=== PATIENT | female | born 1945 | race Caucasian/White ===

== ENCOUNTER 2018-04-07 23:45 | Inpatient (IN) | payer OTHER, MEDICARE ==
[~2018-04-07] VITALS: Ht 167.6 cm; Wt 100.5 kg
[~2018-04-07 23:45] MED LIST: ASPIR-LOW81 MG PO; ATENOLOL25 M1 PO; CELEXA40 MG PO; CITALOPRAM HBR40 M1 PO; CITALOPRAM HBR40 MG PO; CLONAZEPAM0.5 M1 PO; CLONAZEPAM0.5 MG PO; DILAUDID2 MG PO; GLUCOPHAGE500 MG PO; KLONOPIN0.5 M1 PO; LEVOTHYROXINE137 MCG PO; LEVOTHYROXINE150 MCG PO; LIDODERM 5% P1 PATCH PO; LIDODERM 5% P1 PATCH TD; LISINOPRIL5 MG PO; LYRICA75 MG PO; MECLIZINE HCL25 M3 PO; MECLIZINE HCL25 MG PO; MELOXICAM15 MG PO; METFORMIN HCL500 MG PO; METOPROLOL SUCC50 MG PO; MORPHINE; MORPHINE SULFA100 M2 PO; MORPHINE SULFA100 MG PO; MS CONTIN100 MG PO; OXYCODONE HCL10 MG PO; OXYCODONE10 MG PO; PERCOCET 10/1 TABLET PO; PROVENTIL,2.5 MG/3 M IH; RANITIDINE HCL150 M1 PO; RANITIDINE HCL300 M1 PO; RANITIDINE HCL300 MG PO; SUCRALFATE1 GM PO; SYNTHROID125 MCG PO; TENORMIN25 MG PO; TOPROL XL50 MG PO; VENTOLIN HFA18 GM IH; ZESTRIL,PRINIVIL5 MG PO
[2018-04-08 00:38] LABS: BASOPHIL (%) 0.4 % (0-1); EOSINOPHIL COUNT 0.1 K/uL (0-0.3); HEMATOCRIT 41.2 % (36.0-46.0); HEMOGLOBIN 14.1 G/DL (11.9-15.5); IMMATURE GRANULOCYTE (%) 0.5 % (0.0-0.7); LYMPHOCYTE (%) 28.4 % (15-42); LYMPHOCYTE COUNT 2.2 K/uL (1.0-2.8); MCH 29.9 PG (29.0-34.0); MCHC 34.2 G/DL (30.0-36.0); MCV 87.3 FL (83-99); MONOCYTE (%) 6.2 % (3-12); MONOCYTE COUNT 0.5 K/uL (0-0.8); NEUTROPHIL (%) 63.5 % (45-76); RBC DIS.WIDTH-CV 12.4 % (11.8-14.6); RBC DIS.WIDTH-SD 39.5 % (39-53); RED BLOOD COUNT 4.72 M/uL (3.80-5.20); WHITE BLOOD COUNT 7.9 K/uL (4.1-10.2)
[2018-04-08 00:43] LABS: INTER. NORMALIZED RATIO 1.1
[2018-04-08 00:45] LABS: PTT 22.6 SEC (25-37)
[2018-04-08 00:48] LABS: AMYLASE 16 IU/L (1-118); CHLORIDE 101 mEq/L (99-109); POTASSIUM 3.6 mEq/L (3.7-5.4); SODIUM 143 mEq/L (136-147)
[2018-04-08 00:53] LABS: CREATININE 0.8 mg/dL (0.6-1.3); GFR ESTIMATE (CALCULATED) > 59 mL/min/; SERUM ETHYL ALCOHOL < 10 mg/dL
[2018-04-08 00:54] LABS: UREA NITROGEN (BUN) 14 mg/dL (9-23)
[2018-04-08 00:56] LABS: LIPASE 21 U/L (1.0-51.0)
[2018-04-08 01:07] LABS: GLUCOSE 275 mg/dL (70-99)
[2018-04-08 01:08] LABS: TROP-I INTERPRETATION NEGATIVE; TROPONIN-I 0.01 ng/mL (0.0-0.30)
[2018-04-08 01:09] LABS: AMPHETAMINE NEGATIVE (500 ng/mL); BARBITURATES NEGATIVE (200 ng/mL); BENZODIAZEPINES NEGATIVE (150 ng/mL); BUPRENORPHINE NEGATIVE (10 ng/mL); COCAINE NEGATIVE (150 ng/mL); METHADONE NEGATIVE (200 ng/mL); METHAMPHETAMINE NEGATIVE (500 ng/mL); OPIATES (MORPHINE) PRESUMPTIVE POSITIVE (100 ng/mL); OXYCODONE NEGATIVE (100 ng/mL); PHENCYCLIDINE NEGATIVE (25 ng/mL); PROPOXYPHENE NEGATIVE (300 ng/mL); THC CANNABINOIDS NEGATIVE (50 ng/mL); TRICYCLIC ANTIDEPRESSANTS NEGATIVE (300 ng/mL)
[2018-04-08 01:27] LABS: APPEARANCE SL.HAZY ((CLEAR)); BILIRUBIN NEGATIVE; BLOOD NEGATIVE; COLOR YELLOW ((YELLOW)); GLUCOSE (STRIP) >=500; KETONES NEGATIVE; LEUKOCYTES SMALL; NITRITE POSITIVE; PROTEIN (STRIP) NEGATIVE; SPECIFIC GRAVITY 1.015 (1.000-1.030); UROBILINOGEN 0.2 MG/DL (0.2-1.0)
[2018-04-08 01:40] LABS: BACTERIA RARE /HPF; EPITHELIAL CELLS RARE /HPF; MUCUS TRACE /LPF; RED BLOOD CELLS 0-5 /HPF (0-5); UCUL ADDED? YES; WHITE BLOOD CELLS 15-20 /HPF (0-5)
[2018-04-08 01:54] LABS: PLAT.SUFFICIENCY ADEQUATE; PLATELET COUNT 156 K/uL (156-360)
[2018-04-08 02:19] LABS: HEMATOCRIT 40.5 % (36.0-46.0); HEMOGLOBIN 14.1 G/DL (11.9-15.5); MCH 30.2 PG (29.0-34.0); MCHC 34.8 G/DL (30.0-36.0); MCV 86.7 FL (83-99); PLATELET COUNT 156 K/uL (156-360); RBC DIS.WIDTH-CV 12.4 % (11.8-14.6); RBC DIS.WIDTH-SD 39.2 % (39-53); RED BLOOD COUNT 4.67 M/uL (3.80-5.20)
[2018-04-08 02:45] LABS: TROP-I INTERPRETATION NEGATIVE; TROPONIN-I 0.02 ng/mL (0.0-0.30)
[2018-04-08 06:42] LABS: HEMOGLOBIN 13.3 G/DL (11.9-15.5); MCH 30.5 PG (29.0-34.0); MCV 87.2 FL (83-99); PLATELET COUNT 170 K/uL (156-360); RBC DIS.WIDTH-CV 12.3 % (11.8-14.6); RBC DIS.WIDTH-SD 39.3 % (39-53); RED BLOOD COUNT 4.36 M/uL (3.80-5.20); WHITE BLOOD COUNT 12.9 K/uL (4.1-10.2)
[2018-04-08 07:11] LABS: HDL CHOLESTEROL 44 MG/DL (Desirable>=50); LDL CHOLESTEROL 112 mg/dL (Desirable<100); NON-HDL CHOLESTEROL 144 mg/dL (Desirable<160); TOTAL CHOLESTEROL 188 mg/dL (Desirable<200); TRIGLYCERIDES 158 MG/DL (Normal: <150)
[2018-04-08 09:31] VITALS: BP 197/108
[2018-04-08 11:14] LABS: HEMOGLOBIN A1c (GLYCOHEMOGLOB) 6.8 % (Below 5.7)
[2018-04-08 11:54] VITALS: BP 122/68
[2018-04-08 12:13] LABS: TROP-I INTERPRETATION NEGATIVE; TROPONIN-I < 0.01 ng/mL (0.0-0.30)
[2018-04-08 15:55] VITALS: BP 120/66
[2018-04-08] MEDS ORDERED: ANTIVERT12.5 MG PO (16:16)
[2018-04-08] MEDS ORDERED: ZANTAC150 MG PO (16:17)
[2018-04-08] MEDS ORDERED: METFORMIN HCL1000 MG PO (16:19)
[2018-04-08] MEDS ORDERED: AVENTYL,PAMELOR25 MG PO (16:21)
[2018-04-08] MEDS ORDERED: COLACE100 MG PO (16:21)
[2018-04-08] MEDS ORDERED: LISINOPRIL40 MG PO (16:30)
[2018-04-08] MEDS ORDERED: MORPHINE IV (16:30)
[2018-04-08] MEDS ORDERED: GLUCOTROL5 MG PO (16:31)
[2018-04-08] MEDS ORDERED: SERTRALINE HCL50 MG PO (16:31)
[2018-04-08] MEDS ORDERED: AMLODIPINE BESYL5 MG PO (16:32)
[2018-04-08] MEDS ORDERED: SYNTHROID137 MCG PO (16:32)
[2018-04-08] MEDS ORDERED: DITROPAN5 MG PO (16:33)
[2018-04-08] MEDS ORDERED: LOPRESSOR50 MG PO ×2 (16:34)
[2018-04-08] MEDS ORDERED: XALATAN2.5 ML RIGHT EYE (16:35)
[2018-04-08] MEDS ORDERED: MELATONIN5 M3 PO (16:36)
[2018-04-08] MEDS ORDERED: MULTIPLE VITAM1 EAC1 PO (16:37)
[2018-04-08 18:27] LABS: TROP-I INTERPRETATION NEGATIVE; TROPONIN-I 0.01 ng/mL (0.0-0.30)
[2018-04-08 20:00] VITALS: BP 115/57
[2018-04-09] VITALS (7 sets, daily range): BP systolic 107–167; BP diastolic 51–79
[2018-04-09 05:42] LABS: BASOPHIL (%) 0.2 % (0-1); EOSINOPHIL (%) 1.9 % (0-5); EOSINOPHIL COUNT 0.2 K/uL (0-0.3); HEMATOCRIT 37.2 % (36.0-46.0); HEMOGLOBIN 12.3 G/DL (11.9-15.5); IMMATURE GRANULOCYTE (%) 0.4 % (0.0-0.7); LYMPHOCYTE (%) 32.4 % (15-42); LYMPHOCYTE COUNT 2.7 K/uL (1.0-2.8); MCH 29.5 PG (29.0-34.0); MCHC 33.1 G/DL (30.0-36.0); MCV 89.2 FL (83-99); MONOCYTE (%) 6.9 % (3-12); MONOCYTE COUNT 0.6 K/uL (0-0.8); NEUTROPHIL (%) 58.2 % (45-76); NEUTROPHIL COUNT 4.9 K/uL (1.8-6.4); PLATELET COUNT 152 K/uL (156-360); RBC DIS.WIDTH-CV 12.6 % (11.8-14.6); RBC DIS.WIDTH-SD 41.1 % (39-53); RED BLOOD COUNT 4.17 M/uL (3.80-5.20); WHITE BLOOD COUNT 8.4 K/uL (4.1-10.2)
[2018-04-09 06:15] LABS: ALBUMIN 3.8 G/DL (3.2-4.8); ALKALINE PHOSPHATASE 58 IU/L (3-129); ALT (GPT) 23 IU/L (3-49); AST (GOT) 28 IU/L (2-34); CHLORIDE 104 MEQ/L (99-109); CREATININE 0.6 MG/DL (0.6-1.3); GFR ESTIMATE (CALCULATED) > 59 mL/min/; GLUCOSE 163 mg/dL (70-99); POTASSIUM 4.2 MEQ/L (3.7-5.4); SODIUM 140 MEQ/L (136-147); TOTAL BILIRUBIN 0.4 MG/DL (0.0-1.0); TOTAL PROTEIN 6.3 G/DL (6.4-8.3); UREA NITROGEN (BUN) 16 mg/dL (9-23)
[2018-04-10 03:55] VITALS: BP 141/80
[2018-04-10 05:48] LABS: BASOPHIL (%) 0.3 % (0-1); EOSINOPHIL (%) 0.1 % (0-5); HEMATOCRIT 38.3 % (36.0-46.0); HEMOGLOBIN 12.6 G/DL (11.9-15.5); IMMATURE GRANULOCYTE (%) 1.3 % (0.0-0.7); LYMPHOCYTE (%) 15.7 % (15-42); LYMPHOCYTE COUNT 1.1 K/uL (1.0-2.8); MCH 28.8 PG (29.0-34.0); MCHC 32.9 G/DL (30.0-36.0); MCV 87.6 FL (83-99); MONOCYTE (%) 1.6 % (3-12); MONOCYTE COUNT 0.1 K/uL (0-0.8); NEUTROPHIL COUNT 5.6 K/uL (1.8-6.4); PLATELET COUNT 165 K/uL (156-360); RBC DIS.WIDTH-CV 12.1 % (11.8-14.6); RBC DIS.WIDTH-SD 38.9 % (39-53); RED BLOOD COUNT 4.37 M/uL (3.80-5.20); WHITE BLOOD COUNT 6.9 K/uL (4.1-10.2)
[2018-04-10 06:16] LABS: ALKALINE PHOSPHATASE 73 IU/L (3-129); ALT (GPT) 24 IU/L (3-49); AST (GOT) 35 IU/L (2-34); CHLORIDE 102 MEQ/L (99-109); CREATININE 0.5 MG/DL (0.6-1.3); GFR ESTIMATE (CALCULATED) > 59 mL/min/; GLUCOSE 218 mg/dL (70-99); POTASSIUM 4.6 MEQ/L (3.7-5.4); SODIUM 138 MEQ/L (136-147); TOTAL BILIRUBIN 0.4 MG/DL (0.0-1.0); TOTAL PROTEIN 6.2 G/DL (6.4-8.3); UREA NITROGEN (BUN) 14 mg/dL (9-23)
[2018-04-10 08:23] VITALS: BP 135/85
[2018-04-10 12:22] VITALS: BP 160/98
[2018-04-10 17:25] VITALS: BP 130/64
[2018-04-10 20:11] VITALS: BP 145/70
[2018-04-11] VITALS (7 sets, daily range): BP systolic 138–173; BP diastolic 70–86
[2018-04-11 06:15] LABS: BASOPHIL (%) 0.2 % (0-1); EOSINOPHIL (%) 0 % (0-5); HEMATOCRIT 36.6 % (36.0-46.0); HEMOGLOBIN 12.3 G/DL (11.9-15.5); LYMPHOCYTE (%) 15.8 % (15-42); LYMPHOCYTE COUNT 1.5 K/uL (1.0-2.8); MCH 29.5 PG (29.0-34.0); MCHC 33.6 G/DL (30.0-36.0); MCV 87.8 FL (83-99); MONOCYTE (%) 4.4 % (3-12); MONOCYTE COUNT 0.4 K/uL (0-0.8); NEUTROPHIL (%) 78.6 % (45-76); NEUTROPHIL COUNT 7.3 K/uL (1.8-6.4); PLATELET COUNT 164 K/uL (156-360); RBC DIS.WIDTH-CV 12.1 % (11.8-14.6); RBC DIS.WIDTH-SD 39.2 % (39-53); RED BLOOD COUNT 4.17 M/uL (3.80-5.20); WHITE BLOOD COUNT 9.3 K/uL (4.1-10.2)
[2018-04-11 06:38] LABS: CHLORIDE 101 MEQ/L (99-109); CREATININE 0.5 MG/DL (0.6-1.3); GFR ESTIMATE (CALCULATED) > 59 mL/min/; GLUCOSE 234 mg/dL (70-99); POTASSIUM 4.1 MEQ/L (3.7-5.4); SODIUM 139 MEQ/L (136-147); UREA NITROGEN (BUN) 14 mg/dL (9-23)
[2018-04-12 03:39] VITALS: BP 151/89
[2018-04-12 07:13] VITALS: BP 170/95
[2018-04-12 11:35] VITALS: BP 172/81
[2018-04-12 15:36] VITALS: BP 175/88
[2018-04-12 19:47] VITALS: BP 135/72
[2018-04-13 00:01] VITALS: BP 152/90
[2018-04-13 04:00] VITALS: BP 160/85
[2018-04-13 07:42] VITALS: BP 162/87
[2018-04-13] MEDS ORDERED: ATORVASTATIN CA40 MG PO (08:43)
[2018-04-13] MEDS ORDERED: NIFEDIPINE10 MG PO (08:43)
[2018-04-13] MEDS ORDERED: ANTIVERT25 MG PO (08:44)
[2018-04-13] MEDS ORDERED: MEDROL DOSEPAK4 MG PO (08:44)
[2018-04-13] MEDS ORDERED: FLAGYL500 MG PO (08:45)
[2018-04-13] MEDS ORDERED: BISAC-EVAC10 MG PR (08:48)
[2018-04-13] MEDS ORDERED: COLACE100 MG PO (08:48)
[2018-04-13 11:37] VITALS: BP 117/64
== END 2018-04-13 13:21 | DRG 155 ==
LOC: EME 23:45 → EDOF 04-08 05:35 → 4SOUTH 04-08 05:35 → ENRESERV 04-08 05:40 → 4SOUTH 04-08 07:43 → 5SOUTH 04-08 10:26 → CANRESERV 04-08 10:41 → ENRESERV 04-08 10:41 → 5SOUTH 04-10 17:15
PROVIDERS: Emergency Medicine; Hospitalist; Internal Medicine
DX: H93.3X9 Disorders of unspecified acoustic nerve (principal); I16.1 Hypertensive emergency; N39.0 Urinary tract infection, site not specified; B96.20 Unspecified Escherichia coli [E. coli] as the cause of diseases classified elsewhere; K59.03 Drug induced constipation; T40.2X5A Adverse effect of other opioids, initial encounter; K52.9 Noninfective gastroenteritis and colitis, unspecified; E87.6 Hypokalemia; I10 Essential (primary) hypertension; K21.9 Gastro-esophageal reflux disease without esophagitis; E78.5 Hyperlipidemia, unspecified; G43.909 Migraine, unspecified, not intractable, without status migrainosus; F32.9 Major depressive disorder, single episode, unspecified; E11.9 Type 2 diabetes mellitus without complications; H40.9 Unspecified glaucoma; G89.4 Chronic pain syndrome; Z96.89 Presence of other specified functional implants; Z96.653 Presence of artificial knee joint, bilateral; Z87.891 Personal history of nicotine dependence; Z98.1 Arthrodesis status; Z79.891 Long term (current) use of opiate analgesic
CPT/HCPCS: 36415; 70450; 70551; 71045; 71275; 74177; 80048; 80053; 80061; 81003; 82043; 82150; 82570; 82948; 83036; 83690; 84443; 84484; 84999; 85025; 85025 91; 85027; 85610; 85730; 86850; 86900; 86901; 87040; 87077; 87086 GA; 87186; 93005; 93880; 97530 GP; 99281; 99284; G0480; J0696; J1100; J1200; J1650; J1815; J1885; J2310; J2405; J2765; S0030

== ENCOUNTER 2018-04-13 09:16 | Inpatient (IN) | payer OTHER, MEDICARE ==
[~2018-04-13] VITALS: Ht 167.6 cm; Wt 100.2 kg
[~2018-04-13 09:16] MED LIST changes: +AMLODIPINE BESYL5 MG PO; +ANTIVERT12.5 MG PO; +ANTIVERT25 MG PO; +ATORVASTATIN CA40 MG PO; +AVENTYL,PAMELOR25 MG PO; +BISAC-EVAC10 MG PR; +COLACE100 MG PO; +DITROPAN5 MG PO; +FLAGYL500 MG PO; +GLUCOTROL5 MG PO; +LISINOPRIL40 MG PO; +LOPRESSOR50 MG PO; +MEDROL DOSEPAK4 MG PO; +MELATONIN5 M3 PO; +METFORMIN HCL1000 MG PO; +MORPHINE IV; +MULTIPLE VITAM1 EAC1 PO; +NIFEDIPINE10 MG PO; +SERTRALINE HCL50 MG PO; +SYNTHROID137 MCG PO; +XALATAN2.5 ML RIGHT EYE; +ZANTAC150 MG PO
[2018-04-13 21:28] VITALS: BP 174/84
[2018-04-14 00:05] VITALS: BP 158/77
[2018-04-14 06:59] VITALS: BP 166/77
[2018-04-14 15:40] VITALS: BP 177/77
[2018-04-15 06:04] LABS: BASOPHIL (%) 0.4 % (0-1); BASOPHIL COUNT 0.1 K/uL (0-0.1); EOSINOPHIL (%) 0.5 % (0-5); EOSINOPHIL COUNT 0.1 K/uL (0-0.3); HEMATOCRIT 40.1 % (36.0-46.0); HEMOGLOBIN 13.7 G/DL (11.9-15.5); IMMATURE GRANULOCYTE (%) 0.9 % (0.0-0.7); LYMPHOCYTE (%) 32.4 % (15-42); LYMPHOCYTE COUNT 4.5 K/uL (1.0-2.8); MCH 29.6 PG (29.0-34.0); MCHC 34.2 G/DL (30.0-36.0); MCV 86.6 FL (83-99); MONOCYTE (%) 8.7 % (3-12); MONOCYTE COUNT 1.2 K/uL (0-0.8); NEUTROPHIL (%) 57.1 % (45-76); NEUTROPHIL COUNT 7.9 K/uL (1.8-6.4); PLATELET COUNT 173 K/uL (156-360); RBC DIS.WIDTH-CV 12.4 % (11.8-14.6); RED BLOOD COUNT 4.63 M/uL (3.80-5.20); WHITE BLOOD COUNT 13.9 K/uL (4.1-10.2)
[2018-04-15 06:27] LABS: CHLORIDE 102 MEQ/L (99-109); CREATININE 0.6 MG/DL (0.6-1.3); GFR ESTIMATE (CALCULATED) > 59 mL/min/; GLUCOSE 179 mg/dL (70-99); POTASSIUM 3.8 MEQ/L (3.7-5.4); SODIUM 140 MEQ/L (136-147); UREA NITROGEN (BUN) 17 mg/dL (9-23)
[2018-04-15 07:05] VITALS: BP 166/79
[2018-04-15 08:20] LABS: FOLIC ACID (FOLATE) > 22.0 NG/ML (5.0-22.0)
[2018-04-15 10:30] LABS: ERTH.SED.RATE 12 MM/HR (0-30)
[2018-04-15 15:28] VITALS: BP 155/73
[2018-04-16 05:33] VITALS: BP 124/66
[2018-04-16 15:16] VITALS: BP 138/71
[2018-04-17 06:06] VITALS: BP 107/61
[2018-04-17 15:51] VITALS: BP 130/60
[2018-04-18 05:29] VITALS: BP 106/55
[2018-04-18 15:47] VITALS: BP 110/55
[2018-04-19 05:31] VITALS: BP 125/64
[2018-04-19 15:44] VITALS: BP 108/58
[2018-04-20 04:53] VITALS: BP 100/54
[2018-04-20 08:29] VITALS: BP 90/51
[2018-04-20 11:37] VITALS: BP 116/59
[2018-04-20 15:17] VITALS: BP 106/57
[2018-04-20 21:56] VITALS: BP 138/70
[2018-04-21 04:21] VITALS: BP 130/66
[2018-04-21 06:07] LABS: BASOPHIL (%) 0.4 % (0-1); EOSINOPHIL (%) 1.3 % (0-5); EOSINOPHIL COUNT 0.1 K/uL (0-0.3); HEMATOCRIT 41.1 % (36.0-46.0); HEMOGLOBIN 13.4 G/DL (11.9-15.5); IMMATURE GRANULOCYTE (%) 0.6 % (0.0-0.7); LYMPHOCYTE (%) 36.4 % (15-42); LYMPHOCYTE COUNT 3.8 K/uL (1.0-2.8); MCH 28.6 PG (29.0-34.0); MCHC 32.6 G/DL (30.0-36.0); MCV 87.8 FL (83-99); MONOCYTE (%) 9.3 % (3-12); NEUTROPHIL COUNT 5.4 K/uL (1.8-6.4); PLATELET COUNT 192 K/uL (156-360); RBC DIS.WIDTH-CV 12.1 % (11.8-14.6); RBC DIS.WIDTH-SD 38.8 % (39-53); RED BLOOD COUNT 4.68 M/uL (3.80-5.20); WHITE BLOOD COUNT 10.4 K/uL (4.1-10.2)
[2018-04-21 06:35] LABS: CHLORIDE 100 MEQ/L (99-109); CREATININE 0.3 MG/DL (0.6-1.3); GFR ESTIMATE (CALCULATED) > 59 mL/min/; GLUCOSE 162 mg/dL (70-99); POTASSIUM 3.9 MEQ/L (3.7-5.4); SODIUM 138 MEQ/L (136-147); UREA NITROGEN (BUN) 14 mg/dL (9-23)
[2018-04-21 15:07] VITALS: BP 90/51
[2018-04-21 16:27] LABS: C DIFF TOXIN NEGATIVE (NEGATIVE)
[2018-04-21 17:16] VITALS: BP 120/58
[2018-04-21 22:13] VITALS: BP 143/64
[2018-04-22 05:25] VITALS: BP 115/61
[2018-04-22 15:29] VITALS: BP 108/63
[2018-04-23 04:11] VITALS: BP 121/62
[2018-04-23 15:28] VITALS: BP 100/55
[2018-04-24 03:47] VITALS: BP 133/68
[2018-04-24 09:41] VITALS: BP 130/65
[2018-04-24] MEDS ORDERED: ANTIVERT25 MG PO (11:30)
[2018-04-24] MEDS ORDERED: LOPRESSOR50 MG PO (11:30)
[2018-04-24] MEDS ORDERED: VALSARTAN160 MG PO (11:30)
== END 2018-04-24 12:15 | disposition home health service (06) | DRG 149 ==
LOC: 3WEST 09:16 → ENPENDDIS 04-24 → 3WEST 04-24 12:15
PROVIDERS: Family Medicine Sports Medicine; Physical Medicine & Rehabilitation Pain Medicine; Psychiatry & Neurology Neurology
PROC: F07M0ZZ Range of Motion and Joint Mobility Treatment of Musculoskeletal System - Whole Body (ICD-10-PCS; principal; 2018-04-13)
DX: H81.20 Vestibular neuronitis, unspecified ear (principal); R27.0 Ataxia, unspecified; E11.9 Type 2 diabetes mellitus without complications; F32.9 Major depressive disorder, single episode, unspecified; E78.5 Hyperlipidemia, unspecified; G93.40 Encephalopathy, unspecified; G89.29 Other chronic pain; I10 Essential (primary) hypertension; K52.9 Noninfective gastroenteritis and colitis, unspecified; N39.0 Urinary tract infection, site not specified; K59.00 Constipation, unspecified; S22.39XA Fracture of one rib, unspecified side, initial encounter for closed fracture; Z80.1 Family history of malignant neoplasm of trachea, bronchus and lung; Z82.49 Family history of ischemic heart disease and other diseases of the circulatory system; Z86.73 Personal history of transient ischemic attack (TIA), and cerebral infarction without residual deficits; Z96.653 Presence of artificial knee joint, bilateral; Z90.710 Acquired absence of both cervix and uterus; W19.XXXA Unspecified fall, initial encounter; Y93.89 Activity, other specified; Y92.89 Other specified places as the place of occurrence of the external cause
CPT/HCPCS: 80048; 82607; 82746; 82948; 85025; 85651; 87493; 97110 GO; 97530 GP; J1650; J1815; J7509